=== PATIENT | female | born 1990 | race Two or more races ===

== ENCOUNTER 2019-09-30 05:38 | Emergency (ER) | payer MEDICAID, OTHER ==
[~2019-09-30] VITALS: Ht 162.6 cm; Wt 63.5 kg
--- NOTE | 2019-09-30 05:45 | NUR ---
PT [id number] C/O BIZARRE BEHAVIOR, PT IS AAOX2, NOT IN RESPIRATORY DISTRESS, HOOKED TO MONITOR, KEPT RESTED AND COMFORTABLE, WILL CONTINUE TO MONITOR.
--- NOTE | 2019-09-30 05:50 | NUR ---
SEEN AND EXAMINED BY .
--- NOTE | 2019-09-30 06:00 | NUR ---
UER PHLEB AT BEDSIDE FOR BLOOD DRAW.
[2019-09-30 06:11] LABS: BASOPHILS % (AUTO) 0.3 % (0.0-2.0); EOSINOPHILS % (AUTO) 1.8 % (0.0-6.0); HEMATOCRIT 39 % (33-45); HEMOGLOBIN 12.4 g/dL (11.5-14.8); LYMPHOCYTES # (AUTO) 1.5 /CMM (0.8-4.8); LYMPHOCYTES % (AUTO) 21.8 % (20.0-44.0); MEAN CORPUSCULAR HGB CONC 32 g/dl (31.0-36.0); MEAN CORPUSCULAR VOLUME 78 fL (82-100); MONOCYTES # (AUTO) 0.4 /CMM (0.1-1.30); MONOCYTES % (AUTO) 5.5 % (2.0-12.0); NEUTROPHILS # (AUTO) 4.9 /CMM (1.8-8.9); NEUTROPHILS % (AUTO) 70.6 % (43.0-81.0); PLATELET COUNT (AUTO) 483 /CMM (150-450); RED BLOOD CELL COUNT(AUTO) 5.02 MIL/uL (4.0-5.2); WHITE BLOOD COUNT (AUTO) 6.9 K/uL (4.3-11.0)
--- NOTE | 2019-09-30 06:12 | NUR ---
URINAL GIVEN BUT UNABLE TO PROVIDE URINE SPECIMEN THIS TIME.
[2019-09-30 06:17] LABS: CALCIUM, SERUM 9.9 mg/dL (8.5-10.1); CARBON DIOXIDE 28 mmol/L (21-32); CHLORIDE 98 mmol/L (98-107); CREATININE 0.6 mg/dL (0.6-1.3); GLUCOSE 85 mg/dL (74-106); POTASSIUM 3.8 mmol/L (3.5-5.1); SODIUM SERUM 138 mmol/L (136-145); UREA NITROGEN, BLOOD 15 mg/dL (7-18)
[2019-09-30 06:23] LABS: ACETAMINOPHEN 0 ug/ml (10-30); ALANINE AMINOTRANSFERASE 60 U/L (12-78); ALCOHOL, BLOOD < 3 mg/dL (0-0); ALKALINE PHOSPHATASE 131 U/L (46-116); ASPARTATE AMINOTRANSFERASE 25 U/L (15-37); BILIRUBIN,DIRECT 0.1 mg/dL (0.0-0.2); BILIRUBIN,TOTAL 0.7 mg/dL (0.2-1.0); SALICYLATE < 0.2 mg/dL (2.8-20.0)
[2019-09-30] MEDS ORDERED: OLANZAPINE 10 MG VIAL IM ONE ×2 (06:30→06:45)
[2019-09-30] MEDS ORDERED: LORAZEPAM INJ 2 MG/ML VIAL ONE (07:07)
[2019-09-30] MEDS ORDERED: LORAZEPAM INJ 2 MG/ML VIAL IM ONE (07:30)
--- NOTE | 2019-09-30 07:35 | NUR ---
Urine collected and sent to lab
[2019-09-30 08:03] LABS: BILIRUBIN,URINE Negative (NEGATIVE); BLOOD, URINE Trace-intact Ery/uL (NEGATIVE); COLOR,URINE Yellow (YELLOW); KETONES,URINE Negative (NEGATIVE); LEUKOCYTE ESTERASE ,URINE Small (NEGATIVE); NITRITE, URINE Negative (NEGATIVE); PROTEIN,URINE Negative (NEGATIVE); UGLUCOSE Negative (NEGATIVE); UROBILINOGEN,URINE 0.2 EU/dL (0.2)
[2019-09-30 08:13] LABS: APPEARANCE,URINE SLIGHTLY CLOUDY (CLEAR)
[2019-09-30 08:14] LABS: BACTERIA,URINE Moderate /HPF (None Seen); SQUAMOUS EPITHELIAL CELL,UR Few /HPF (None Seen)
[2019-09-30 13:43] VITALS: BP 125/78
--- NOTE | 2019-09-30 13:43 | NUR ---
Patient discharged to home in stable condition. Written and verbal after care instructions given. Patient verbalizes understanding of instruction.
== END 2019-09-30 13:43 | disposition home or self-care (01) ==
LOC: EDBD 05:39 → ER 05:39
DX: F15.10 Other stimulant abuse, uncomplicated (principal)
CPT/HCPCS: 36415; 80048; 80076; 80305; 80307; 80329; 81001; 85025; 96372 ×2; 99284; G0480; J2060; J3490; 81000-TC; 87086-TC